=== PATIENT | female | born 2005 | race Two or more races ===

== ENCOUNTER 2024-12-30 20:52 | Emergency (ER) | payer OTHER, MEDICAID ==
[~2024-12-30] VITALS: Ht 152.4 cm; Wt 105.7 kg
[2024-12-30 22:04] VITALS: BP 132/80; PULSE 118; RESP 20
[2024-12-30] MEDS ORDERED: ACET500T58 PO (22:43)
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
[2024-12-30 22:45] VITALS: O2SAT 96
== END 2024-12-30 22:53 | disposition home or self-care (01) ==
LOC: ER 20:52
DX: S20.212A Contusion of left front wall of thorax, initial encounter (principal); V48.9XXA Unspecified car occupant injured in noncollision transport accident in traffic accident, initial encounter; Y93.89 Activity, other specified; Y92.89 Other specified places as the place of occurrence of the external cause; Y99.8 Other external cause status